=== PATIENT | male | born 1990 | race African-American/Black ===

== ENCOUNTER 2018-01-20 01:18 | Emergency (ER) | payer OTHER ==
[~2018-01-20] VITALS: Ht 170.2 cm; Wt 62.5 kg
[2018-01-20 02:44] VITALS: BP 132/88
== END 2018-01-20 02:46 | disposition home or self-care (01) ==
LOC: EME 01:18
DX: E86.0 Dehydration (principal); R11.2 Nausea with vomiting, unspecified; F17.200 Nicotine dependence, unspecified, uncomplicated
CPT/HCPCS: 99281; 99283